=== PATIENT | female | born 1950 | race Caucasian/White ===

== ENCOUNTER 2017-06-17 08:41 | Emergency (ER) | payer MEDICARE, BC ==
[2017-06-17 10:04] VITALS: BP 137/64
--- NOTE | 2017-06-17 10:23 | UC ---
Ear Complaint HPI - HPI Summary HPI Summary: 67 yo female with bilateral otalgias x days decreased hearing left ear uri symptoms x 4 days no f/c - History of Current Complaint Chief Complaint: UCEar Stated Complaint: BILATERAL EAR PAIN Time Seen by Provider: 06/17/17 10:10 Hx Obtained From: Patient Onset/Duration: Gradual Onset, Lasting Days Severity Currently: Mild Pain Intensity: 3 - waas severe prior to analgesic Pain Scale Used: 0-10 Numeric Associated Signs/Symptoms: Positive: Hearing Loss, URI Symptoms - Allergies/Home Medications Allergies/Adverse Reactions: Allergies Allergy/AdvReac Type Severity Reaction Status Date / Time amoxicillin Allergy Unknown Verified 06/17/17 09:59 Reaction Details Home Medications: Home Medications Meloxicam [Mobic] 15 mg PO DAILY 06/17/17 [History Confirmed 06/17/17] Metoprolol Tartrate TAB* [Lopressor TAB*] 100 mg PO DAILY 06/17/17 [History Confirmed 06/17/17] Omeprazole CAP* [Prilosec CAP* 20 MG] 20 mg PO DAILY 06/17/17 [History Confirmed 06/17/17] PMH/Surg Hx/FS Hx/Imm Hx Previously Healthy: Yes Endocrine History: Dyslipidemia Cardiovascular History: Hypertension - Surgical History Surgical History: Yes Surgery Procedure, Year, and Place: kidney surgery - Family History Known Family History: Positive: Hypertension - Social History Alcohol Use: Rare Substance Use Type: None Smoking Status (MU): Never Smoked Tobacco Review of Systems Constitutional: Negative Skin: Negative Eyes: Negative ENT: Ear Ache, Nasal Discharge Respiratory: Negative Cardiovascular: Negative Gastrointestinal: Negative Genitourinary: Negative Motor: Negative Neurovascular: Negative Musculoskeletal: Negative Neurological: Negative Psychological: Negative Is Patient Immunocompromised?: No All Other Systems Reviewed And Are Negative: Yes Physical Exam Triage Information Reviewed: Yes Appearance: Well-Appearing, No Pain Distress, Well-Nourished Vital Signs: Initial Vital Signs Temp 98 F 06/17/17 09:57 Pulse 68 06/17/17 09:57 Resp 16 06/17/17 09:57 BP 137/64 06/17/17 09:57 Pulse Ox 99 06/17/17 09:57 Eyes: Positive: Conjunctiva Clear ENT: Positive: TM bulging - L>R, TM red - L>R. Negative: Hearing grossly normal - decreased L, TMs normal Neck: Positive: Nontender, No Lymphadenopathy Respiratory: Positive: Lungs clear, Normal breath sounds, No respiratory distress, No accessory muscle use Cardiovascular: Positive: RRR, No Murmur Musculoskeletal: Positive: ROM Intact, No Edema Neurological: Positive: Alert Psychological Exam: Normal Skin Exam: Normal Ear Complaint Course/Dx - Differential Dx/Diagnosis Provider Diagnoses: bilateral Otitis media. viral URI Discharge - Discharge Plan Condition: Stable Disposition: HOME Prescriptions: ceFUROXime TAB(*) [Ceftin TAB(*)] 250 mg PO BID #20 tab Patient Education Materials: Ear Infection (ED) Referrals: Gaviota Gutierrez MD [Primary Care Provider] - 2 Weeks (if hearing not back to normal)
== END 2017-06-17 10:23 | disposition home or self-care (01) ==
LOC: UCCORT 08:41
DX: H66.93 Otitis media, unspecified, bilateral (principal); J06.9 Acute upper respiratory infection, unspecified; E78.5 Hyperlipidemia, unspecified; I10 Essential (primary) hypertension; Z88.1 Allergy status to other antibiotic agents
CPT/HCPCS: 99212; G0463